=== PATIENT | female | born 1975 | race Caucasian/White ===

== ENCOUNTER → 2017-08-22 | Day surgery (SDC) | payer BC ==
[~2017-08-22] MED LIST: IV RINGERS,LACTATED 1000ML 1,000 ML IV SCH; LIDOCAINE 1% PF 2 ML VIAL. ID PRN; MIDAZOLAM HCL/PF 2 MG/2 ML VIAL. IV PRN; PROPOFOL 20 ML IV ONE; fentaNYL PF VIAL 100 MCG/2 ML VIAL IV PRN
[2017-08-22 07:36] LABS: NEG OBC UR NEG; POS OBC UR POS
--- NOTE | 2017-08-22 08:49 | HP ---
ADMIT DATE: 08/22/2017 REFERRING PHYSICIAN:. Dr. Hoa Olmstead. HISTORY OF PRESENT ILLNESS: A 42-year-old female whose past medical history is significant for gastroesophageal reflux disease as well as history of colonic polyps, is seen for surveillance colonoscopy. Bowel habits have been regular without diarrhea or constipation. No melena and hematochezia. Last colon exam was approximately 5 years ago. She is otherwise without additional complaints. PAST MEDICAL HISTORY: GERD, IBS, history of colonic polyps, history of bowel obstruction. ALLERGIES: None. MEDICATIONS: None. SOCIAL HISTORY: Nonsmoker, nondrinker. FAMILY HISTORY: Significant for hypertension with her father and paternal grandmother. [place] in paternal grandmother. PAST SURGICAL HISTORY: Significant for large bowel resections, . REVIEW OF SYSTEMS: Per records. PHYSICAL EXAMINATION: GENERAL: Reveals a well-nourished, well-developed female. VITAL SIGNS: Temperature is 98.6, pulse respirations 20. HEENT: Normocephalic and atraumatic. Pupils and extraocular muscles not tested. Sclerae anicteric. NECK: Supple. LUNGS: Clear. CARDIOVASCULAR: Reveals S1, S2 without S3, S4 or appreciable murmur. ABDOMEN: Soft abdomen, normal bowel sounds, without appreciable hepatosplenomegaly. EXTREMITIES: Reveal no cyanosis, clubbing or edema. IMPRESSION: Colorectal screening is warranted at this time. Risks and benefits of procedure including risk of perforation during the operation have been discussed with the patient who is willing to proceed. DAWOOD SAINZ MD DR: SAMIA/adwoa JOB#: [id number] / [id number]
[2017-08-22 08:54] VITALS: BP 105/56
--- NOTE | 2017-08-23 11:13 | PATHOLOGY ---
PATHOLOGY REPORT * * * * * * * * FINAL DIAGNOSIS: Colon biopsy, hepatic flexure polyp: - Serrated adenoma. COMMENT: There is no high grade dysplasia or evidence of malignancy. (JPM:mmloc; 08/23/2017) REPORT ELECTRONICALLY SIGNED BY: Jonas Calvert M.D. DATE/TIME: 08/23/2017 11:12 * * * * * * * * GROSS PATHOLOGY: Received in formalin labeled "Florian Rodarte," is a 0.9 x 0.4 x 0.5 cm polypoid piece of alvarez soft tissue. The margin is inked and the tissue is sectioned perpendicular to the margin and submitted in its entirety in cassette A1. (TSD; 08/22/2017) INITIAL CPT CODE(S): A; 03686 Professional services performed [place] [facility] [place] [address] Technical services performed by [facility] at [address] [place] [address]. SPECIMEN(S) RECEIVED: A.Hepatic flexure polyp CLINICAL HISTORY: Polyps PATIENT: FLORIAN NOGUERA /AGE: 302/03/1975 (Age: 42) PATIENT #: [id number] ALT CASE #: SPECIMEN COLLECTION DATE: 08/22/2017 SPECIMEN RECEIVED DATE: 08/22/2017 [facility] - [address] [place] [address] - PHONE: [phone] * * * END OF REPORT * * *
== END | disposition home or self-care (01) ==
LOC: SURG 06:51
PROVIDERS: ATTEND Internal Medicine Gastroenterology
DX: Z09 Encounter for follow-up examination after completed treatment for conditions other than malignant neoplasm (principal); Z86.010 Personal history of colon polyps; D12.3 Benign neoplasm of transverse colon; K64.0 First degree hemorrhoids; K21.9 Gastro-esophageal reflux disease without esophagitis
CPT/HCPCS: 45385; 81025; 88305; J2704